=== PATIENT | male | born 2000 | race Caucasian/White ===

== ENCOUNTER 2019-03-24 11:00 | Emergency (ER) | payer MEDICAID, OTHER ==
[2019-03-24] MEDS ORDERED: DIPH/PERTUSS(ACELL)/TETANUS VAC/PF 0.5 ML SYR (>=10YO) IM ONE (11:31)
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
[2019-03-24] MEDS ORDERED: LIDOCAINE 1% INJ-PF (10 MG/ML) 30 ML SDV INJ ONE (12:18)
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
[2019-03-24] MEDS ORDERED: BACITRACIN ZINC OINTMENT 15 GM TP ONE (12:58)
[2019-03-24 13:42] VITALS: BP 120/64
== END 2019-03-24 13:43 | disposition home or self-care (01) ==
LOC: ER 11:00
PROC: 0HQ1XZZ Repair Face Skin, External Approach (ICD-10-PCS; principal; 2019-03-24)
DX: S01.111A Laceration without foreign body of right eyelid and periocular area, initial encounter (principal); Y04.0XXA Assault by unarmed brawl or fight, initial encounter
CPT/HCPCS: 70200; 90471; 90715; 99283; J3490